=== PATIENT | male | born 1975 | race Caucasian/White ===

== ENCOUNTER 2023-06-14 23:56 | Emergency (ER) | payer MEDICAID ==
[~2023-06-14] VITALS: Ht 182.9 cm; Wt 170.6 kg
[2023-06-15 00:01] VITALS: BP_SYST 139; PULSE 95; RESP 12; TEMP 98.5; O2SAT 95
[2023-06-15] MEDS ORDERED: MELO-89 PO (19:03)
== END 2023-06-15 00:26 | disposition left against medical advice (07) ==
LOC: SED 23:56
DX: Z04.3 Encounter for examination and observation following other accident (principal); Z79.899 Other long term (current) drug therapy
CPT/HCPCS: 99281

== ENCOUNTER 2023-06-15 16:07 | Emergency (ER) | payer MEDICAID ==
[~2023-06-15] VITALS: Ht 182.9 cm; Wt 170.1 kg
[2023-06-15 16:22] VITALS: BP_SYST 104; PULSE 90; RESP 18; TEMP 97.4; O2SAT 97
[2023-06-15] MEDS ORDERED: MELO-89 PO (19:03)
[2023-06-15] MEDS ORDERED: KETOROLAC TROMETHAMINE 60 MG/2 ML VIAL IM ONE (19:15)
== END 2023-06-15 19:13 | disposition home or self-care (01) ==
LOC: SED 16:07
DX: S83.92XA Sprain of unspecified site of left knee, initial encounter (principal); W18.39XA Other fall on same level, initial encounter; Y93.89 Activity, other specified; Y92.89 Other specified places as the place of occurrence of the external cause; Y99.8 Other external cause status
CPT/HCPCS: 73564; 99283